=== PATIENT | female | born 1990 | race Two or more races ===

== ENCOUNTER 2024-04-30 18:46 | Emergency (ER) | payer OTHER, SELFPAY ==
[~2024-04-30] VITALS: Ht 165.1 cm; Wt 59.6 kg
[~2024-04-30 18:46] MED LIST: DIPH2.5T73 PO; PROMETHAZINE PO
[2024-04-30 18:52] VITALS: BP 113/80; PULSE 68; RESP 16; O2SAT 98
[2024-04-30 19:29] LABS: Urine Bacteria None Seen /hpf (None Seen)
[2024-04-30 19:36] LABS: Basophils # (auto) 0 10 ^3/uL (0-0.2); Basophils % (auto) 0.4 % (0.0-2.0); Eosinophils # (auto) 0.1 10 ^3/uL (0-0.8); Hematocrit 40.5 % (36.0-46.0); Hemoglobin 13.9 g/dL (12.2-16.2); Lymphocytes % (auto) 28.1 % (10.0-50.0); Mean Corpuscular Hemoglobin 30.4 pg (28.0-32.0); Mean Corpuscular Hgb Conc. 34.3 g/dL (32.0-36.0); Mean Corpuscular Volume 88.7 fL (80.0-100.0); Monocytes # (auto) 0.6 10 ^3/uL (0-1.3); Monocytes % (auto) 5.9 % (0.0-12.0); Neutrophils # (auto) 6.9 10 ^3/uL (1.6-8.6); Neutrophils % (auto) 64.6 % (37.0-80.0); Red Blood Cells 4.57 10^6/uL (4.0-5.20); Red Cell Distribution Width 13.1 % (11.8-14.3); White Blood Cell 10.7 10^3/uL (4.4-10.8)
[2024-04-30 19:43] LABS: Urine Blood Negative /uL (Negative); Urine Clarity Clear (Clear); Urine Color Light-Yellow (Yellow); Urine Protein, UAD Negative (Negative); Urine Specific Gravity 1.013 (1.001-1.035); Urine Urobilinogen Normal (Negative); Urine WBC 2 /hpf (0 - 5)
[2024-04-30 19:52] LABS: Alkaline Phosphatase 86 U/L (46-116); Anion Gap 8 (5-15); Aspartate Aminotransferase < 8 U/L (13-40); BUN/Creatinine Ratio 15.7 (10.0-20.0); Blood Urea Nitrogen 11 mg/dL (9-23); Calcium 9.4 mg/dL (8.7-10.4); Carbon Dioxide 27 mmol/L (20-30); Chloride 103 mmol/L (98-107); Glucose 99 mg/dL (74-106); Lipase 35 U/L (12-53); Potassium 3.5 mmol/L (3.5-5.1); Sodium 138 mmol/L (136-145)
[2024-04-30 19:53] LABS: Albumin 4.6 g/dL (3.2-4.8); Bilirubin, Total 1.9 mg/dL (0.2-1.0); Total Protein 7.8 g/dL (5.7-8.2)
[2024-04-30 19:57] LABS: Alanine Aminotransferase < 9 U/L (7-40)
== END 2024-04-30 21:09 | disposition home or self-care (01) ==
LOC: ER 18:46
DX: R10.32 Left lower quadrant pain (principal)
CPT/HCPCS: 36415; 76856; 80053; 81001; 83690; 85025